=== PATIENT | male | born 1970 | race Caucasian/White ===

== ENCOUNTER 2022-07-02 06:40 | Emergency (ER) | payer OTHER, SELFPAY ==
--- NOTE | ~2022-07-02 | CT_ITS ---
EXAMINATION: CT soft tissue neck w con DATE: 07/02/2022 09:05 INDICATION: Abscess. TECHNIQUE: Computed tomography (CT) of the neck was performed with 75 mL Omnipaque-350 intravenous co ntrast. Automated exposure control and iterative reconstruction technique were employed. The dose-francis gth product was 565.29 mGy-cm. COMPARISON: None FINDINGS: There is mild scarring at the lung apices. There is mild emphysema. The orbits are normal. Left jugulodigastric node measures 15 x 20 mm. There is fat stranding in left neck. The major salivar y glands are normal. There is mucosal thickening in the pharynx on the left. No abscess. There is mil d plaque in proximal left internal carotid artery with 0% stenosis relative to normal distal artery l umen diameter. There is severe cervical spondylosis. There are lucencies around the roots of a left m axillary molar. IMPRESSION: 1. Inflammation in left neck with mildly enlarged left high internal jugular chain lymph node, likely reactive. No abscess. Reviewed, dictated and finalized at location A. IMPRESSION: 1. Inflammation in left neck with mildly enlarged left high internal jugular ch ain lymph node, likely reactive. No abscess.
[2022-07-02 06:48] VITALS: BP 124/78; PULSE 77; RESP 17; TEMP 36.9; O2SAT 99
[2022-07-02 08:03] LABS: Basophils Percent Auto 0.7 % (0.2-1.2); Eosinophils Absolute Auto 0.1 K/mm3 (0-0.3); Eosinophils Percent Auto 0.9 % (0-4.4); Immature Granulocyte Absolute 0.03 K/mm3 (0.00-0.031); Immature Granulocyte Percent A 0.5 % (0-0.5); Immature Platelet Fraction Pct 3.4 % (0.9-11.2); Lymphocytes Absolute Auto 1.17 K/mm3 (0.9-3.2); Lymphocytes Percent Auto 20.7 % (18.3-44.2); Mean Corpuscular HGB Conc 34.2 g/dl (32-36); Mean Corpuscular Volume 93.6 fl (80-100); Mean Platelet Volume 10.5 fl (7.4-10.4); Monocytes Absolute Auto 0.4 K/mm3 (0.1-0.6); Monocytes Percent Auto 7.1 % (2.6-8.5); Neutrophils Percent Auto 70.1 % (45.5-73.1); Platelet Count Result 106 k/mm3 (150-375); Red Blood Count 4.06 M/mm3 (4.6-6.20); Red Cell Distribution Width 12.6 % (11.5-14.5); White Blood Count 5.7 K/mm3 (4.5-10.0)
[2022-07-02 08:18] LABS: Alanine Aminotransferase 24 U/L (6-50); Albumin Level 4.4 g/dL (3.5-5.1); Alkaline Phosphatase 78 U/L (38-126); Anion Gap 3 mmol/L (8-16); Aspartate Amino Transferase 27 U/L (17-59); Bilirubin,Total 0.5 mg/dL (0.2-1.3); Blood Urea Nitrogen 14 mg/dL (9-20); Calcium 8.9 mg/dL (8.4-10.2); Carbon Dioxide 29 mmol/L (22-30); Chloride 97 mmol/L (98-107); Estimated CRCL calculation 75 ml/min; Estimated Glomerular Filt Rate > 60; Glucose 99 mg/dL (65-110); Potassium 4.2 mmol/L (3.4-5.0); Sodium 129 mmol/L (137-145)
--- NOTE | 2022-07-02 08:19 | ED.DENTAL ---
HPI - Dental/Oral General Chief complaint: Dental/Oral Stated complaint: dental abcess, swollen lymph nodes? Time Seen by Provider: 07/02/22 07:33 History of Present Illness HPI Narrative: Pt presents with swelling in his neck left greater than right and an intermittent fever for a few days. Pt seen at [place] 4 days ago and started on ibuprofen and clindamycin. Pt says has had some drainge from dentla site in left upper gums and that swelling has improved but is concerned about the fever. Related Data Allergies Allergy/AdvReac Type Severity Reaction Status Date / Time Penicillins Allergy Anaphylaxis Verified 07/02/22 06:53 Review of Systems Review of Systems: All systems reviewed & are unremarkable except as noted in HPI and below Exam Const: General: healthy appearing Nutritional Appearance: well nourished Orientation/consciousness: patient oriented x3 Limitations: no limitations HENMT: Mouth: Yes moist mucous membranes and Yes Abnormal oral and palatal mucosa present (dental carries ) Teeth and gingiva: abnormal tooth and associated gingiva Neck: Neck: lymphadenopathy (onleft anterior cervical) Resp: Effort & Inspection: normal respiratory effort Auscultation: clear to auscultation bilaterally Cardio: Rate: regular rate Rhythm: regular rhythm GI: Auscultation: normal bowel sounds Skin: General skin exam: normal color Rashes: no rashes Neuro: General: patient oriented x3 and moves all extremities Cranial nerves: Yes Nystagmus not present Speech: normal speech Extrem: General: normal to inspection Psych: Mental Status: mental status grossly normal Affect: normal affect Attitude: cooperative Course Vital Signs Vital signs: Vital Signs Temperature 98.5 F 07/02/22 06:48 Pulse Rate 77 07/02/22 06:48 Respiratory Rate 17 07/02/22 06:48 Blood Pressure 124/78 07/02/22 06:48 Pulse Oximetry 99 07/02/22 06:48 Oxygen Delivery Room Air 07/02/22 06:48 Temperature 98.5 F 07/02/22 06:48 Pulse Rate 76 07/02/22 09:36 Respiratory Rate 19 07/02/22 09:36 Blood Pressure 124/78 07/02/22 06:48 Pulse Oximetry 96 07/02/22 09:36 Oxygen Delivery Room Air 07/02/22 06:48 MDM - Dental/Oral Lab Data Result diagrams: 07/02/22 07:52 07/02/22 07:52 Labs: Lab Results 07/02/22 07/02/22 07/02/22 Range/Units 07:52 07:52 07:52 WBC 5.7 (4.5-10.0) K/mm3 RBC 4.06 L (4.6-6.20) M/mm3 Hgb 13.0 L (14.0-18.0) g/dL Hct 38.0 L (42.0-52.0) % MCV 93.6 (80-100) fl MCH 32.0 (26-34) pg MCHC 34.2 (32-36) g/dl RDW 12.6 (11.5-14.5) % Plt Count 106 L (150-375) k/mm3 MPV 10.5 H (7.4-10.4) fl Immature Gran % (Auto) 0.5 (0-0.5) % Neut % (Auto) 70.1 (45.5-73.1) % Lymph % (Auto) 20.7 (18.3-44.2) % [place] % (Auto) 7.1 (2.6-8.5) % Eos % (Auto) 0.9 (0-4.4) % Baso % (Auto) 0.7 (0.2-1.2) % Lymph # (Auto) 1.17 (0.9-3.2) K/mm3 [place] # (Auto) 0.4 (0.1-0.6) K/mm3 Eos # (Auto) 0.1 (0-0.3) K/mm3 Baso # (Auto) 0.0 (0.0-0.1) K/mm3 Abs Immat Gran (auto) 0.03 (0.00-0.031) K/mm3 Absolute Neuts (auto) 4.0 (1.3-6.7) K/mm3 Absolute Nucleated RBC 0.0 (0.0-0.012) K/mm3 Nucleated RBC % 0.0 (0.0-0.2) % % Immature Plt Fraction 3.4 (0.9-11.2) % Sodium 129 L (137-145) mmol/L Potassium 4.2 (3.4-5.0) mmol/L Chloride 97 L (98-107) mmol/L Carbon Dioxide 29 (22-30) mmol/L Anion Gap 3 L (8-16) mmol/L BUN 14 (9-20) mg/dL Creatinine 1.20 (0.7-1.3) mg/dL Estim Creat Clear Calc 75 ml/min Estimated GFR > 60 (59 - ) Glucose 99 (65-110) mg/dL Lactic Acid < 0.5 L (0.7-2.0) mmol/L Calcium 8.9 (8.4-10.2) mg/dL Total Bilirubin 0.5 (0.2-1.3) mg/dL AST 27 (17-59) U/L ALT 24 (6-50) U/L Alkaline Phosphatase 78 (38-126) U/L Total Protein 8.0 (6.3-8.2) g/dL Albumin 4.4 (3.5-5.1) g/dL Discharge Plan
[2022-07-02 08:33] LABS: Lactic Acid Reflex < 0.5 mmol/L (0.7-2.0)
--- NOTE | 2022-07-02 08:59 | PC.NURSE ---
pt to CT at this time.
[2022-07-02 09:36] VITALS: PULSE 76; RESP 19; O2SAT 96
== END 2022-07-02 10:28 | disposition home or self-care (01) ==
PROVIDERS: Emergency Provider Emergency Medicine
DX: K05.319 Chronic periodontitis, localized, unspecified severity (principal)
CPT/HCPCS: 36415; 70491; 80053; 83605; 85025; 85055; 87040; 99284; Q9967